=== PATIENT | female | born 1940 | race Asian ===

== ENCOUNTER 2021-05-17 12:36 | Inpatient (IN) | payer OTHER ==
[~2021-05-17] VITALS: Ht 147.3 cm; Wt 47.6 kg
[2021-05-17 13:34] LABS: HEMATOCRIT 31.7 % (31.2-41.9); MEAN CORPUSCULAR HEMOGLOBIN 30.7 uug (24.7-32.8); MEAN CORPUSCULAR VOLUME 93.9 fL (75.5-95.3); PLATELET COUNT (AUTO) 178 K/uL (179-408)
[2021-05-17 13:38] LABS: CARBON DIOXIDE 26 mmol/L (21-32); CHLORIDE 97 mmol/L (98-107); CREATININE 3.2 mg/dL (0.6-1.3); GLUCOSE 141 mg/dL (74-106); UREA NITROGEN, BLOOD 19 mg/dL (7-18)
[2021-05-17 13:43] LABS: ACETAMINOPHEN < 2.0 ug/mL (10-30); ALANINE AMINOTRANSFERASE 15 U/L (14-59); ALKALINE PHOSPHATASE 83 U/L (50-136); ASPARTATE AMINOTRANSFERASE 25 U/L (15-37); BILIRUBIN,DIRECT 0.2 mg/dL (0.0-0.2); BILIRUBIN,TOTAL 0.4 mg/dL (0.2-1.0); TOTAL PROTEIN, SERUM 7.7 g/dL (6.4-8.2)
[2021-05-17 13:46] LABS: ETHANOL < 3 MG/DL (0-0)
[2021-05-17 13:51] LABS: THYROID STIMULATING HORMONE 3.783 mIU/mL (0.358-3.740)
[2021-05-17] MEDS ORDERED: SEVE800T8 PO (16:51)
[2021-05-17] MEDS ORDERED: ATOR40TA PO (16:51)
[2021-05-17] MEDS ORDERED: CLON0.1T PO (16:51)
[2021-05-17] MEDS ORDERED: ALBU8.5H8 INH (16:51)
[2021-05-17] MEDS ORDERED: LOSA50TA39 PO (16:51)
[2021-05-17] MEDS ORDERED: SENN-261 PO (16:51)
[2021-05-17] MEDS ORDERED: ASPI-618 PO (16:51)
[2021-05-17] MEDS ORDERED: AMLO10TA59 PO (16:51)
[2021-05-17] MEDS ORDERED: ASPI81TA31 PO (16:51)
[2021-05-17] MEDS ORDERED: DOCU100C36 PO (16:51)
[2021-05-17] MEDS ORDERED: FURO-151 PO (16:51)
[2021-05-17] MEDS ORDERED: PANT40TA49 PO (16:51)
[2021-05-17] MEDS ORDERED: POLY119P17 PO (16:51)
[2021-05-17] MEDS ORDERED: BISA-79 PO (16:51)
[2021-05-17] MEDS ORDERED: FURO80TA87 PO (16:51)
[2021-05-17] MEDS ORDERED: HYDR100T27 PO (16:51)
[2021-05-17] MEDS ORDERED: HYDR-3972 PO (16:51)
[2021-05-17] MEDS ORDERED: INSU100V28 SQ (16:51)
[2021-05-18] MEDS ORDERED: ACETAMINOPHEN 325 MG TABLET PO PRN ×2 (01:30→02:00)
[2021-05-18 01:33] VITALS: BP 174/50
[2021-05-18] MEDS ORDERED: ENOXAPARIN SODIUM 40 MG/0.4 ML DISP.SYRIN SQ SCH ×2 (02:00→21:00)
[2021-05-18] MEDS ORDERED: DEXTROSE 50% 50 ML DISP.SYRIN IV PRN (02:00)
[2021-05-18] MEDS ORDERED: MAGNESIUM HYDROXIDE 30 ML LIQUID UDC PO PRN (02:00)
[2021-05-18] MEDS ORDERED: ONDANSETRON 4 MG/2 ML VIAL IV PRN (02:00)
[2021-05-18] MEDS ORDERED: Z GUARD REMEDY PASTE 57 GM TUBE TOP PRN (02:00)
[2021-05-18] MEDS ORDERED: ALBUTEROL SULFATE 8 GM HFA.AER.AD INH PRN ×2 (02:00→05:47)
[2021-05-18] MEDS: AZITHROMYCIN 250 MG TABLET PO SCH (02:49)
[2021-05-18] MEDS: PANTOPRAZOLE SODIUM 40 MG TABLET.DR PO SCH (06:02)
[2021-05-18] MEDS: BLOOD SUGAR DIAGNOSTIC 1 EACH STRIP VI SCH ×4 (06:39→21:00)
[2021-05-18 06:54] LABS: HEMATOCRIT 33.5 % (31.2-41.9); MEAN CORPUSCULAR VOLUME 95.2 fL (75.5-95.3); PLATELET COUNT (AUTO) 143 K/uL (179-408)
[2021-05-18 07:01] LABS: NEUTROPHILS % (MANUAL) 0 % (42-75)
[2021-05-18 07:13] LABS: IRON, SERUM 13 ug/dL (50-175)
[2021-05-18 07:17] LABS: ALANINE AMINOTRANSFERASE 28 U/L (14-59); ALKALINE PHOSPHATASE 91 U/L (50-136); ASPARTATE AMINOTRANSFERASE 39 U/L (15-37); BILIRUBIN,TOTAL 0.4 mg/dL (0.2-1.0); CARBON DIOXIDE 27 mmol/L (21-32); CHLORIDE 100 mmol/L (98-107); CHOLESTEROL 103 mg/dL (<200); CREATININE 4.5 mg/dL (0.6-1.3); GLUCOSE 111 mg/dL (74-106); HDL CHOLESTEROL 50 mg/dL (40-60); MAGNESIUM 2.5 mg/dL (1.8-2.4); PHOSPHOROUS 5.2 mg/dL (2.5-4.9); POTASSIUM 4.4 mmol/L (3.5-5.1); TRIGLYCERIDES 75 MG/DL (30-150); UREA NITROGEN, BLOOD 37 mg/dL (7-18)
[2021-05-18 07:58] LABS: THYROID STIMULATING HORMONE 2.909 mIU/mL (0.358-3.740)
[2021-05-18] MEDS: DEXAMETHASONE SOD PHOSPHATE 4 MG INJ IV SCH (08:06)
[2021-05-18] MEDS: CLONIDINE HCL 0.1 MG TABLET PO SCH ×3 (08:07→16:41)
[2021-05-18] MEDS: LOSARTAN POTASSIUM 50 MG TABLET PO SCH (08:07)
[2021-05-18] MEDS: ASPIRIN 81 MG TAB.CHEW PO SCH (08:07)
[2021-05-18] MEDS ORDERED: APIXABAN 2.5 MG TABLET PO SCH ×2 (10:57→21:00)
[2021-05-18 11:00] VITALS: BP 139/57
[2021-05-18] MEDS: INSULIN REGULAR, HUMAN 300 UNIT/3 ML VIAL SQ PRN ×3 (11:57→22:08)
[2021-05-18 16:00] VITALS: BP 153/53
[2021-05-18 20:00] VITALS: BP 149/66
[2021-05-18] MEDS: ATORVASTATIN 40 MG TABLET PO SCH (21:00)
[2021-05-19] MEDS: AZITHROMYCIN 250 MG TABLET PO SCH (01:46)
[2021-05-19 04:00] VITALS: BP 156/69
[2021-05-19] MEDS: PANTOPRAZOLE SODIUM 40 MG TABLET.DR PO SCH (06:37)
[2021-05-19] MEDS: BLOOD SUGAR DIAGNOSTIC 1 EACH STRIP VI SCH ×4 (06:44→22:04)
[2021-05-19 07:21] LABS: HEMATOCRIT 36.1 % (31.2-41.9); MEAN CORPUSCULAR VOLUME 95.3 fL (75.5-95.3); PLATELET COUNT (AUTO) 150 K/uL (179-408)
[2021-05-19 07:37] LABS: CARBON DIOXIDE 28 mmol/L (21-32); CHLORIDE 97 mmol/L (98-107); CREATININE 5.5 mg/dL (0.6-1.3); GLUCOSE 105 mg/dL (74-106); MAGNESIUM 2.4 mg/dL (1.8-2.4); PHOSPHOROUS 5.9 mg/dL (2.5-4.9); POTASSIUM 5.2 mmol/L (3.5-5.1); UREA NITROGEN, BLOOD 57 mg/dL (7-18)
[2021-05-19] MEDS: CLONIDINE HCL 0.1 MG TABLET PO SCH ×3 (09:55→17:47)
[2021-05-19] MEDS: ASPIRIN 81 MG TAB.CHEW PO SCH (10:04)
[2021-05-19] MEDS: DEXAMETHASONE SOD PHOSPHATE 4 MG INJ IV SCH (10:04)
[2021-05-19] MEDS: APIXABAN 2.5 MG TABLET PO SCH ×2 (10:05→21:59)
[2021-05-19 11:00] VITALS: BP 127/72
[2021-05-19] MEDS: INSULIN REGULAR, HUMAN 300 UNIT/3 ML VIAL SQ PRN ×2 (11:52→17:48)
[2021-05-19] MEDS: LOSARTAN POTASSIUM 50 MG TABLET PO SCH (14:22)
[2021-05-19 16:00] VITALS: BP 142/56
[2021-05-19 20:00] VITALS: BP 153/68
[2021-05-19] MEDS: ATORVASTATIN 40 MG TABLET PO SCH (21:56)
[2021-05-19] MEDS: INSULIN REGULAR, HUMAN 300 UNITS/3 ML VIAL SQ PRN (22:13)
[2021-05-20] VITALS: BP 151/52
[2021-05-20] MEDS: AZITHROMYCIN 250 MG TABLET PO SCH (01:07)
[2021-05-20 04:00] VITALS: BP 153/71
[2021-05-20 06:06] LABS: HEPATITIS B SURFACE AG Negative (Negative)
[2021-05-20] MEDS: PANTOPRAZOLE SODIUM 40 MG TABLET.DR PO SCH (06:29)
[2021-05-20] MEDS: BLOOD SUGAR DIAGNOSTIC 1 EACH STRIP VI SCH ×4 (06:36→21:30)
[2021-05-20] MEDS: CLONIDINE HCL 0.1 MG TABLET PO SCH ×3 (09:00→18:40)
[2021-05-20] MEDS: LOSARTAN POTASSIUM 50 MG TABLET PO SCH (09:00)
[2021-05-20 11:36] VITALS: BP 105/64
[2021-05-20] MEDS: ASPIRIN 81 MG TAB.CHEW PO SCH (11:53)
[2021-05-20] MEDS: DEXAMETHASONE SOD PHOSPHATE 4 MG INJ IV SCH (11:55)
[2021-05-20] MEDS: APIXABAN 2.5 MG TABLET PO SCH ×2 (11:58→21:31)
[2021-05-20] MEDS: INSULIN REGULAR, HUMAN 300 UNIT/3 ML VIAL SQ PRN ×2 (12:17→18:47)
[2021-05-20 15:35] VITALS: BP 126/100
[2021-05-20 20:55] VITALS: BP 165/46
[2021-05-20] MEDS: ATORVASTATIN 40 MG TABLET PO SCH (21:30)
[2021-05-20] MEDS: INSULIN REGULAR, HUMAN 300 UNITS/3 ML VIAL SQ PRN (21:34)
[2021-05-21] MEDS: AZITHROMYCIN 250 MG TABLET PO SCH (01:22)
[2021-05-21 05:00] VITALS: BP 152/54
[2021-05-21] MEDS: PANTOPRAZOLE SODIUM 40 MG TABLET.DR PO SCH (06:36)
[2021-05-21] MEDS: BLOOD SUGAR DIAGNOSTIC 1 EACH STRIP VI SCH ×4 (06:45→21:36)
[2021-05-21] MEDS: NEPRO (VANILLA) 237 ML CAN PO SCH (08:18)
[2021-05-21] MEDS: DEXAMETHASONE SOD PHOSPHATE 4 MG INJ IV SCH (08:18)
[2021-05-21] MEDS: FOLIC ACID/VITAMIN B COMP W-C TABLET PO SCH (08:19)
[2021-05-21] MEDS: APIXABAN 2.5 MG TABLET PO SCH ×2 (08:19→21:32)
[2021-05-21] MEDS: ASPIRIN 81 MG TAB.CHEW PO SCH ×2 (08:19→08:40)
[2021-05-21] MEDS: SEVELAMER CARBONATE 800 MG TABLET PO SCH ×3 (08:19→17:34)
[2021-05-21] MEDS: CLONIDINE HCL 0.1 MG TABLET PO SCH ×3 (08:27→17:52)
[2021-05-21] MEDS: LOSARTAN POTASSIUM 50 MG TABLET PO SCH (08:27)
[2021-05-21] MEDS: INSULIN REGULAR, HUMAN 300 UNIT/3 ML VIAL SQ PRN ×2 (13:17→16:04)
[2021-05-21 16:00] VITALS: BP 128/56
[2021-05-21] MEDS: ATORVASTATIN 40 MG TABLET PO SCH (21:29)
[2021-05-21] MEDS: INSULIN REGULAR, HUMAN 300 UNITS/3 ML VIAL SQ PRN (21:41)
[2021-05-21 22:12] VITALS: BP 122/54
[2021-05-22] MEDS: AZITHROMYCIN 250 MG TABLET PO SCH (01:29)
[2021-05-22 05:48] VITALS: BP 160/63
[2021-05-22] MEDS: PANTOPRAZOLE SODIUM 40 MG TABLET.DR PO SCH (06:54)
[2021-05-22] MEDS: BLOOD SUGAR DIAGNOSTIC 1 EACH STRIP VI SCH ×4 (06:57→22:30)
[2021-05-22 08:29] LABS: CARBON DIOXIDE 25 mmol/L (21-32); CHLORIDE 95 mmol/L (98-107); CREATININE 4.4 mg/dL (0.6-1.3); GLUCOSE 78 mg/dL (74-106); POTASSIUM 4.7 mmol/L (3.5-5.1); UREA NITROGEN, BLOOD 48 mg/dL (7-18)
[2021-05-22] MEDS: ASPIRIN 81 MG TAB.CHEW PO SCH (09:00)
[2021-05-22 11:20] VITALS: BP 154/55
[2021-05-22] MEDS: FOLIC ACID/VITAMIN B COMP W-C TABLET PO SCH (11:21)
[2021-05-22] MEDS: SEVELAMER CARBONATE 800 MG TABLET PO SCH ×3 (11:21→17:12)
[2021-05-22] MEDS: DEXAMETHASONE SOD PHOSPHATE 4 MG INJ IV SCH (11:21)
[2021-05-22] MEDS: CLONIDINE HCL 0.1 MG TABLET PO SCH ×3 (11:21→17:12)
[2021-05-22] MEDS: LOSARTAN POTASSIUM 50 MG TABLET PO SCH (11:21)
[2021-05-22] MEDS: NEPRO (VANILLA) 237 ML CAN PO SCH (11:22)
[2021-05-22] MEDS: APIXABAN 2.5 MG TABLET PO SCH ×2 (11:24→22:30)
[2021-05-22 15:16] VITALS: BP 155/63
[2021-05-22] MEDS: INSULIN REGULAR, HUMAN 300 UNIT/3 ML VIAL SQ PRN (17:17)
[2021-05-22 21:41] VITALS: BP 149/54
[2021-05-22] MEDS: ATORVASTATIN 40 MG TABLET PO SCH (22:00)
[2021-05-23] MEDS: INSULIN REGULAR, HUMAN 300 UNITS/3 ML VIAL SQ PRN (03:44)
[2021-05-23 04:29] VITALS: BP 109/64
[2021-05-23] MEDS: PANTOPRAZOLE SODIUM 40 MG TABLET.DR PO SCH (06:35)
[2021-05-23 07:11] LABS: HEMATOCRIT 36.5 % (31.2-41.9); MEAN CORPUSCULAR HEMOGLOBIN 29.5 uug (24.7-32.8); MEAN CORPUSCULAR VOLUME 91.8 fL (75.5-95.3); PLATELET COUNT (AUTO) 143 K/uL (179-408)
[2021-05-23 07:38] LABS: CARBON DIOXIDE 24 mmol/L (21-32); CHLORIDE 93 mmol/L (98-107); CREATININE 5.8 mg/dL (0.6-1.3); GLUCOSE 105 mg/dL (74-106); MAGNESIUM 2.2 mg/dL (1.8-2.4); PHOSPHOROUS 4.8 mg/dL (2.5-4.9); POTASSIUM 4.9 mmol/L (3.5-5.1); UREA NITROGEN, BLOOD 78 mg/dL (7-18)
[2021-05-23] MEDS: BLOOD SUGAR DIAGNOSTIC 1 EACH STRIP VI SCH ×3 (08:04→18:17)
[2021-05-23] MEDS: FOLIC ACID/VITAMIN B COMP W-C TABLET PO SCH (09:56)
[2021-05-23] MEDS: CLONIDINE HCL 0.1 MG TABLET PO SCH ×3 (09:56→18:11)
[2021-05-23] MEDS: SEVELAMER CARBONATE 800 MG TABLET PO SCH ×3 (09:56→18:11)
[2021-05-23] MEDS: LOSARTAN POTASSIUM 50 MG TABLET PO SCH (09:56)
[2021-05-23] MEDS: ASPIRIN 81 MG TAB.CHEW PO SCH (09:56)
[2021-05-23] MEDS: DEXAMETHASONE SOD PHOSPHATE 4 MG INJ IV SCH (09:57)
[2021-05-23] MEDS: APIXABAN 2.5 MG TABLET PO SCH (09:57)
[2021-05-23] MEDS: NEPRO (VANILLA) 237 ML CAN PO SCH (10:02)
[2021-05-23 11:00] VITALS: BP 160/74
[2021-05-23] MEDS: INSULIN REGULAR, HUMAN 300 UNIT/3 ML VIAL SQ PRN ×2 (11:34→18:18)
[2021-05-23 16:00] VITALS: BP 160/49
[2021-05-23] MEDS ORDERED: DEXA4VIA17 IV (17:11)
[2021-05-23] MEDS ORDERED: APIX2.5T PO (17:11)
[2021-05-23 18:28] VITALS: BP 155/50
== END 2021-05-23 19:28 | DRG 177 ==
LOC: ER 12:36 → TELE3 23:24 → MEDSURG3 05-21 18:00
PROVIDERS: ADMIT Nurse Practitioner Acute Care; ATTEND Nurse Practitioner Acute Care
PROC: 05H933Z Insertion of Infusion Device into Right Brachial Vein, Percutaneous Approach (ICD-10-PCS; principal; 2021-05-17)
PROC: 5A1D70Z Performance of Urinary Filtration, Intermittent, Less than 6 Hours Per Day (ICD-10-PCS; 2021-05-19)
PROC: 5A1D70Z Performance of Urinary Filtration, Intermittent, Less than 6 Hours Per Day (ICD-10-PCS; 2021-05-21)
DX: U07.1 COVID-19 (principal); J12.82 Pneumonia due to coronavirus disease 2019; G93.41 Metabolic encephalopathy; N18.6 End stage renal disease; I13.2 Hypertensive heart and chronic kidney disease with heart failure and with stage 5 chronic kidney disease, or end stage renal disease; J40 Bronchitis, not specified as acute or chronic; E11.22 Type 2 diabetes mellitus with diabetic chronic kidney disease; Z99.2 Dependence on renal dialysis; D63.1 Anemia in chronic kidney disease; D69.6 Thrombocytopenia, unspecified; E87.5 Hyperkalemia; I50.9 Heart failure, unspecified; Z88.0 Allergy status to penicillin; Z88.8 Allergy status to other drugs, medicaments and biological substances; I48.91 Unspecified atrial fibrillation; F32.A Depression, unspecified; Z95.0 Presence of cardiac pacemaker; Z96.649 Presence of unspecified artificial hip joint; K21.9 Gastro-esophageal reflux disease without esophagitis; R94.6 Abnormal results of thyroid function studies
CPT/HCPCS: 36415; 70030-TC; 71045; 83550; 83605; 83735; 84100; 84443; 85025; 86706; 87040; 87340; 93005; 97161; A4663; A6209; G0378; G0480; J1100; J1650; J1815; J3535; J7030; Q0144